=== PATIENT | female | born 1950 | race Caucasian/White ===

== ENCOUNTER → 2017-02-22 | Outpatient (CLI) | payer BC, OTHER ==
[~2017-02-22] MED LIST: ATOR20TA9 PO; CALC-183 PO; CLON-364 PO; FLUT16SP NAS; GLUC-147 PO; MORP30TA PO; MULT-717 PO
[2017-02-22 11:38] LABS: PATH.CAST-FLAG NOT PRESENT; SPERM-FLAG NOT PRESENT; SRC-FLAG NOT PRESENT; XTAL-FLAG NOT PRESENT; YLC-FLAG NOT PRESENT
[2017-02-22 11:41] LABS: ASPARTATE AMINO TRANSFERASE 22 U/L (15-37); BLOOD UREA NITROGEN 14 mg/dL (7-18)
== END | disposition home or self-care (01) ==
LOC: STAR 10:18
PROVIDERS: ATTEND Orthopaedic Surgery
DX: Z01.818 Encounter for other preprocedural examination (principal); R94.31 Abnormal electrocardiogram [ECG] [EKG]; M16.11 Unilateral primary osteoarthritis, right hip; M16.12 Unilateral primary osteoarthritis, left hip; R82.99 Other abnormal findings in urine
CPT/HCPCS: 36415; 80053; 81001; 85025; 87081; 87086; 93005

== ENCOUNTER 2017-02-28 05:51 | Inpatient (IN) | payer BC, OTHER ==
[2017-02-22 10:40] VITALS: BP 146/86
[~2017-02-28] VITALS: Ht 154.9 cm; Wt 49.7 kg
[2017-02-28] MEDS ORDERED: TRANEXAMIC ACID 100 MG/ML, 10ML ONE ×2 (06:23→08:54)
[2017-02-28] MEDS ORDERED: KETOROLAC 60 MG/2 ML ONE ×2 (06:23→09:07)
[2017-02-28] MEDS ORDERED: EPINEPHRINE 1 MG/ML, 1ML ONE ×2 (06:23→09:08)
[2017-02-28] MEDS ORDERED: ROPIvacaine/PF 0.2%, 20 ML ONE ×2 (06:23→09:07)
[2017-02-28] MEDS ORDERED: SODIUM CHLORIDE 0.9% 50 ML ONE ×2 (06:23→09:08)
[2017-02-28] MEDS ORDERED: LACTATED RINGERS 1,000 ML IV SCH (06:26)
[2017-02-28] MEDS ORDERED: GABA300C10 PO (06:29)
[2017-02-28] MEDS ORDERED: ALBU6.7H INH (06:29)
[2017-02-28] MEDS ORDERED: LIDOCAINE 1%, 2ML SQ PRN (06:30)
[2017-02-28] MEDS ORDERED: morphine SULFATE/PF 1 MG/ML, 10ML ONE (06:55)
[2017-02-28] MEDS ORDERED: MIDAZOLAM 1 MG/ML, 2ML ONE (07:01)
[2017-02-28] MEDS ORDERED: FENTANYL PF 250 MCG/5ML ONE (07:01)
[2017-02-28] MEDS ORDERED: KETAMINE 10 MG/ML, 20ML ONE (07:01)
[2017-02-28] MEDS ORDERED: DEXAMETHASONE 4 MG/ML, 1ML ONE (07:12)
[2017-02-28] MEDS ORDERED: SUCCINYLCHOLINE 20 MG/ML, 10ML ONE (07:12)
[2017-02-28] MEDS ORDERED: PROPOFOL 10 MG/ML, 20ML ONE (07:12)
[2017-02-28] MEDS ORDERED: CEFAZOLIN 1,000 MG ONE (07:12)
[2017-02-28] MEDS ORDERED: ONDANSETRON 2MG/ML, 2ML ONE (07:12)
[2017-02-28] MEDS ORDERED: ONDANSETRON 2MG/ML, 2ML IVPush PRN (08:30)
[2017-02-28] MEDS ORDERED: METOCLOPRAMIDE 5 MG/ML, 2ML IV PRN (08:30)
[2017-02-28] MEDS ORDERED: ALBUTEROL/IPRATROPIUM 2.5MG/0.5MG, 3 ML NPPB PRN (08:30)
[2017-02-28] MEDS ORDERED: MEPERIDINE/PF 25MG/0.5ML IVPush PRN (08:30)
[2017-02-28] MEDS ORDERED: ACETAMINOPHEN 325 MG TABLET PO PRN (08:30)
[2017-02-28] MEDS ORDERED: HYDROmorphone 1 MG/ML, 1ML IV PRN ×2 (08:30→10:30)
[2017-02-28] MEDS ORDERED: MIDAZOLAM 1 MG/ML, 2ML IV PRN (08:30)
[2017-02-28] MEDS ORDERED: EPHEDRINE 50 MG/ML, 1ML IVPush PRN (08:30)
[2017-02-28] MEDS ORDERED: PROMETHAZINE 25 MG/ML, 1ML IV PRN (08:30)
[2017-02-28] MEDS ORDERED: OXYcodone 5 MG/5 ML ORAL.SOL UDC PO PRN (08:30)
[2017-02-28] MEDS ORDERED: LABETALOL 5MG/ML, 20ML IV PRN (08:30)
[2017-02-28] MEDS ORDERED: FENTANYL PF 100 MCG/2ML IV PRN (08:30)
[2017-02-28] MEDS ORDERED: HYDROmorphone 1 MG/ML, 1ML ONE (09:47)
[2017-02-28] MEDS ORDERED: PROMETHAZINE 12.5 MG SUPP PR PRN (10:30)
[2017-02-28] MEDS ORDERED: DIPHENHYDRAMINE 50 MG CAPSULE PO PRN (10:30)
[2017-02-28] MEDS ORDERED: BISACODYL 10 MG SUPP PR PRN (10:30)
[2017-02-28] MEDS ORDERED: ONDANSETRON 4 MG TABLET PO PRN (10:30)
[2017-02-28] MEDS ORDERED: ALUMINUM/MAG/SIMETHICONE 30 ML UDC PO PRN (10:30)
[2017-02-28] MEDS ORDERED: SENNA/DOCUSATE TABLET PO PRN (10:30)
[2017-02-28] MEDS ORDERED: MAGNESIUM HYDROXIDE 8%, 30ML UDC PO PRN (10:30)
[2017-02-28] MEDS ORDERED: ONDANSETRON 2MG/ML, 2ML IV PRN (10:30)
[2017-02-28] MEDS ORDERED: TRANEXAMIC ACID 1,000 MG in SODIUM CHLORIDE 0.9% 100 ML IVPB ONE (11:00)
[2017-02-28] MEDS: CEFAZOLIN PMX 1GM/50ML 50 ML IVPB SCH ×2 (14:08→23:25)
[2017-02-28] MEDS: SCOPOLAMINE PATCH, 1.5MG PATCH.TD72 TD SCH (14:09)
[2017-02-28] MEDS: NICOTINE 14MG/24 HR PATCH.TD24 TD SCH (14:09)
[2017-02-28] MEDS: D5%-0.45NACL+KCL 20MEQ 1,000 ML IV SCH ×2 (14:10→23:25)
[2017-02-28] MEDS: ACETAMINOPHEN 650 MG/20.3 ML UDC PO SCH ×2 (14:10→20:48)
[2017-02-28 18:34] VITALS: BP 111/41
[2017-02-28] MEDS: OXYcodone IR 5MG TABLET PO PRN ×2 (18:42→23:25)
[2017-02-28] MEDS: ATORVASTATIN 20 MG TABLET PO SCH (20:48)
[2017-02-28] MEDS: DOCUSATE 100 MG CAPSULE PO SCH (20:48)
[2017-02-28] MEDS: ASPIRIN 81 MG TABLET EC PO SCH (20:48)
[2017-02-28 23:33] VITALS: BP 101/56
[2017-03-01] MEDS: ACETAMINOPHEN 650 MG/20.3 ML UDC PO SCH ×4 (01:35→20:51)
[2017-03-01 03:05] VITALS: BP 99/62
[2017-03-01] MEDS ORDERED: DEXAMETHASONE 4 MG/ML, 1ML IVPush SCH (06:00)
[2017-03-01 07:34] VITALS: BP 119/51
[2017-03-01] MEDS ORDERED: RIVAROXABAN 10 MG TABLET PO SCH (08:00)
[2017-03-01] MEDS: DOCUSATE 100 MG CAPSULE PO SCH ×2 (08:11→20:51)
[2017-03-01] MEDS: ASPIRIN 81 MG TABLET EC PO SCH ×2 (08:11→20:51)
[2017-03-01] MEDS: CALCIUM/VITAMIN D3 250-125 TABLET PO SCH (08:11)
[2017-03-01] MEDS: D5%-0.45NACL+KCL 20MEQ 1,000 ML IV SCH ×2 (08:11→14:38)
[2017-03-01] MEDS: MULTIVITAMINS/MINERALS TABLET PO SCH (08:11)
[2017-03-01] MEDS: ALBUTEROL INHALER HOMEINH SCH (08:46)
[2017-03-01] MEDS: FLUTICASONE NASAL SPRAY 16GM NAS SCH (10:18)
[2017-03-01] MEDS: KETOROLAC 30 MG/1 ML IV SCH ×2 (10:50→18:08)
[2017-03-01] MEDS: NICOTINE 14MG/24 HR PATCH.TD24 TD SCH (14:33)
[2017-03-01 15:08] VITALS: BP 107/57
[2017-03-01] MEDS: OXYcodone IR 5MG TABLET PO PRN (16:04)
[2017-03-01 19:12] VITALS: BP 119/69
[2017-03-01] MEDS: ATORVASTATIN 20 MG TABLET PO SCH (20:51)
[2017-03-02 00:22] VITALS: BP 110/62
[2017-03-02] MEDS: D5%-0.45NACL+KCL 20MEQ 1,000 ML IV SCH ×3 (01:00→15:16)
[2017-03-02] MEDS: ACETAMINOPHEN 650 MG/20.3 ML UDC PO SCH ×4 (02:44→21:14)
[2017-03-02] MEDS: KETOROLAC 30 MG/1 ML IV SCH (02:44)
[2017-03-02] MEDS: OXYcodone IR 5MG TABLET PO PRN ×2 (05:10→17:50)
[2017-03-02 06:58] VITALS: BP 102/63
[2017-03-02] MEDS: ALBUTEROL INHALER HOMEINH SCH (08:19)
[2017-03-02] MEDS: MULTIVITAMINS/MINERALS TABLET PO SCH (08:36)
[2017-03-02] MEDS: ASPIRIN 81 MG TABLET EC PO SCH ×2 (08:36→21:14)
[2017-03-02] MEDS: FLUTICASONE NASAL SPRAY 16GM NAS SCH (08:36)
[2017-03-02] MEDS: CALCIUM/VITAMIN D3 250-125 TABLET PO SCH (08:36)
[2017-03-02] MEDS: DOCUSATE 100 MG CAPSULE PO SCH ×2 (08:36→21:14)
[2017-03-02 13:38] VITALS: BP 108/60
[2017-03-02] MEDS: NICOTINE 14MG/24 HR PATCH.TD24 TD SCH (14:26)
[2017-03-02 19:17] VITALS: BP 98/63
[2017-03-02] MEDS: ATORVASTATIN 20 MG TABLET PO SCH (21:14)
[2017-03-03 00:48] VITALS: BP 102/59
[2017-03-03] MEDS: D5%-0.45NACL+KCL 20MEQ 1,000 ML IV SCH ×2 (01:00→09:00)
[2017-03-03] MEDS: OXYcodone IR 5MG TABLET PO PRN ×3 (01:13→11:03)
[2017-03-03] MEDS: ACETAMINOPHEN 650 MG/20.3 ML UDC PO SCH ×3 (02:04→13:33)
[2017-03-03] MEDS ORDERED: OXYC5TAB2 PO (04:18)
[2017-03-03 06:55] VITALS: BP 119/66
[2017-03-03] MEDS: ALBUTEROL INHALER HOMEINH SCH (09:00)
[2017-03-03] MEDS: SCOPOLAMINE PATCH, 1.5MG PATCH.TD72 TD SCH (09:21)
[2017-03-03] MEDS: DOCUSATE 100 MG CAPSULE PO SCH (09:30)
[2017-03-03] MEDS: CALCIUM/VITAMIN D3 250-125 TABLET PO SCH (09:30)
[2017-03-03] MEDS: ASPIRIN 81 MG TABLET EC PO SCH (09:30)
[2017-03-03] MEDS: MULTIVITAMINS/MINERALS TABLET PO SCH (09:30)
[2017-03-03] MEDS: FLUTICASONE NASAL SPRAY 16GM NAS SCH (09:30)
[2017-03-03 12:41] VITALS: BP 111/70
[2017-03-03] MEDS: NICOTINE 14MG/24 HR PATCH.TD24 TD SCH (13:33)
== END 2017-03-03 13:50 | disposition home or self-care (01) | DRG 462 ==
LOC: ORIP 05:51 → 4NOR 12:08
PROVIDERS: ADMIT Orthopaedic Surgery; ATTEND Orthopaedic Surgery
PROC: 0SR902A Replacement of Right Hip Joint with Metal on Polyethylene Synthetic Substitute, Uncemented, Open Approach (ICD-10-PCS; 2017-02-28)
PROC: 0SRB02A Replacement of Left Hip Joint with Metal on Polyethylene Synthetic Substitute, Uncemented, Open Approach (ICD-10-PCS; principal; 2017-02-28 07:30)
DX: M16.0 Bilateral primary osteoarthritis of hip (principal); E78.5 Hyperlipidemia, unspecified; F41.9 Anxiety disorder, unspecified; J44.9 Chronic obstructive pulmonary disease, unspecified; G89.29 Other chronic pain; F32.9 Major depressive disorder, single episode, unspecified; I27.2 Other secondary pulmonary hypertension; F17.210 Nicotine dependence, cigarettes, uncomplicated; Z88.0 Allergy status to penicillin; Z88.2 Allergy status to sulfonamides; Q65.89 Other specified congenital deformities of hip
CPT/HCPCS: 36415; 72170; 85025; 86850; 86900; C1713; J0171; J0690; J1100; J1170; J1885; J2250; J2274; J2405; J2704; J2795; J3010; J3490; C1776; J0330; J3480; J7120